=== PATIENT | male | born 1990 | race Hispanic/Latino ===

== ENCOUNTER 2024-02-23 10:10 | Outpatient (CLI) | payer BC | END 2024-02-23 10:11 | disposition home or self-care (01) | LOC: CSHDTY/OP 10:10 | PROVIDERS: ATTEND Nurse Practitioner Family | DX: Z71.3 Dietary counseling and surveillance (principal) | CPT/HCPCS: 97802 ==

== ENCOUNTER 2024-03-27 09:56 | Outpatient (CLI) | payer BC | END 2024-03-27 09:57 | disposition home or self-care (01) | LOC: CSHDTY/OP 09:56 | PROVIDERS: ATTEND Nurse Practitioner Family | DX: Z71.3 Dietary counseling and surveillance (principal) | CPT/HCPCS: 97802 ==

== ENCOUNTER 2024-10-27 10:14 | Outpatient (CLI) | payer BC | END 2024-10-27 10:15 | disposition home or self-care (01) | LOC: CSHDTY/OP 10:14 | PROVIDERS: ATTEND Nurse Practitioner Family | DX: Z71.3 Dietary counseling and surveillance (principal) | CPT/HCPCS: 97802 ==

== ENCOUNTER 2024-12-27 08:49 | Outpatient (CLI) | payer BC | END 2024-12-27 08:50 | disposition home or self-care (01) | LOC: CSHDTY/OP 08:49 | PROVIDERS: ATTEND Nurse Practitioner Family | DX: Z71.3 Dietary counseling and surveillance (principal) | CPT/HCPCS: 97802 ==